=== PATIENT | female | born 1955 | race Asian ===

== ENCOUNTER 2017-06-17 06:46 | Inpatient (IN) | payer OTHER, BC ==
[2017-06-17 08:46] LABS: ADD MAN DIFF? NO
[2017-06-17 08:47] LABS: WHITE BLOOD COUNT 6.3 10^3/ul (4.8-10.8)
[2017-06-17 08:47] LABS: BASOPHILS % 0.3 % (0.0-2.0); EOSINOPHILS # 0.1 10^3/ul (0.0-0.5); EOSINOPHILS % 2.1 % (0.0-7.0); HEMATOCRIT 34.7 % (37.0-47.0); HEMOGLOBIN 11.8 g/dl (12.0-16.0); LYMPHOCYTES # 1.8 10^3/ul (0.8-2.9); LYMPHOCYTES % 28.4 % (15.0-51.0); MEAN CORPUSCULAR HEMOGLOBIN 30.7 pg (29.0-33.0); MEAN CORPUSCULAR VOLUME 90.4 fl (82.0-101.0); MEAN PLATELET VOLUME 10.6 fl (7.4-10.4); MONOCYTE # 0.8 10^3/ul (0.3-0.9); MONOCYTES % 12.6 % (0.0-11.0); NEUTROPHIL # 3.5 10^3/ul (1.6-7.5); NEUTROPHILS % 56.4 % (39.0-77.0); PLATELET COUNT 179 10^3/UL (140-415); RED BLOOD COUNT 3.84 10^6/ul (4.20-5.40); RED CELL DISTRIBUTION WIDTH 12.6 % (11.5-14.5)
[2017-06-17 09:06] LABS: ALANINE AMINOTRANSFERASE 34 IU/L (13-69); ALBUMIN 4.2 g/dl (3.3-4.9); ALBUMIN/GLOBULIN RATIO 1.23; ALKALINE PHOSPHATASE 117 IU/L (42-121); ANION GAP 19 (8-16); ASPARTATE AMINO TRANSFERASE 24 IU/L (15-46); BILIRUBIN,INDIRECT 0.7 mg/dl (0-1.1); BILIRUBIN,TOTAL 0.7 mg/dl (0.2-1.3); BLOOD UREA NITROGEN 26 mg/dl (7-20); CALCIUM 10.5 mg/dl (8.4-10.2); CARBON DIOXIDE 22 mmol/L (21-31); CHLORIDE 108 mmol/L (97-110); CREATININE 1.14 mg/dl (0.44-1.00); GLUCOSE 100 mg/dl (70-220); LIPASE 20 U/L (23-300); POTASSIUM 3.6 mmol/L (3.5-5.1); SODIUM 145 mmol/L (135-144); TOTAL PROTEIN 7.6 g/dl (6.1-8.1)
[2017-06-17 09:52] LABS: INR 0.85; PROTIME 11.7 Sec (11.9-14.9); PT RATIO 0.9
[2017-06-17 09:53] LABS: PARTIAL THROMBOPLASTIN TIME 33.2 Sec (25.0-35.0)
[2017-06-17 11:39] LABS: ADD UMIC YES; UR ASCORBIC ACID NEGATIVE (NEGATIVE); UR BACTERIA FEW /HPF (NONE SEEN); UR BILIRUBIN (Dip) NEGATIVE (NEGATIVE); UR BLOOD (Dip) 1+ mg/dL (NEGATIVE); UR BUDDING YEAST FEW /HPF (NONE SEEN); UR CLARITY SLIGHTLY CLOUDY (CLEAR); UR COLOR YELLOW (YELLOW); UR GLUCOSE (Dip) NEGATIVE (NEGATIVE); UR KETONES (Dip) NEGATIVE (NEGATIVE); UR LEUKOCYTE ESTERASE (Dip) 1+ Leu/ul (NEGATIVE); UR NITRITE (Dip) NEGATIVE (NEGATIVE); UR RBC 1 /HPF (0-5); UR SPECIFIC GRAVITY (Dip) 1.013 (1.003-1.030); UR SQUAMOUS EPITHELIAL CELL FEW /HPF (FEW); UR TOTAL PROTEIN (Dip) 1+ mg/dl (NEGATIVE); UR UROBILINOGEN (Dip) 1+ mg/dL (NEGATIVE); UR WBC 21 /HPF (0-5)
[2017-06-17] MEDS ORDERED: ONDANSETRON 4 MG INJ IV ×2 (13:00→15:30)
[2017-06-17] MEDS ORDERED: ACETAMINOPHEN 325 MG TAB PO (13:00)
[2017-06-17] MEDS: CEFTRIAXONE 1 GM/50 ML (PMX) 50 ML IVPB (13:54)
[2017-06-17] MEDS ORDERED: NACL 0.9% 3 ML SYG IV (15:30)
[2017-06-17] MEDS ORDERED: morphine 2 MG INJ IV (15:30)
[2017-06-17] MEDS: FAMOTIDINE 20 MG INJ IV (16:49)
[2017-06-17] MEDS: SOD CHLORIDE 0.9% 1,000 ML IV (16:50)
[2017-06-17] MEDS ORDERED: GLUCOSE GEL 15 GRAM TUBE BUCCAL (18:00)
[2017-06-17] MEDS ORDERED: GLUCOSE GEL 15 GRAM TUBE PO ×2 (18:00)
[2017-06-17] MEDS ORDERED: DEXTROSE 50% 50 ML SYRINGE IV ×2 (18:00)
[2017-06-17] MEDS ORDERED: GLUCAGON 1 MG INJ IM (18:00)
[2017-06-17] MEDS: INSULIN ASPART [NOVOLOG] 3 ML PEN SC ×2 (18:55→20:44)
[2017-06-17] MEDS: CYCLOSPORINE MICROEMULS 25 MG CAP PO (20:36)
[2017-06-17] MEDS: ATORVASTATIN 40 MG TAB PO (20:36)
[2017-06-17] MEDS: LEVETIRACETAM 250 MG TAB PO (20:37)
[2017-06-17] MEDS ORDERED: FAMOTIDINE 20 MG INJ IV (21:00)
[2017-06-18] MEDS: SOD CHLORIDE 0.9% 1,000 ML IV (01:15)
[2017-06-18] MEDS: ACCU-CHEK XX (01:35)
[2017-06-18 06:11] LABS: ADD MAN DIFF? NO
[2017-06-18 06:24] LABS: BASOPHILS % 0.6 % (0.0-2.0); EOSINOPHILS # 0.1 10^3/ul (0.0-0.5); EOSINOPHILS % 2.4 % (0.0-7.0); HEMATOCRIT 36.8 % (37.0-47.0); HEMOGLOBIN 12.7 g/dl (12.0-16.0); LYMPHOCYTES # 1.4 10^3/ul (0.8-2.9); LYMPHOCYTES % 27.8 % (15.0-51.0); MEAN CORPUSCULAR HEMOGLOBIN 31.2 pg (29.0-33.0); MEAN CORPUSCULAR HGB CONC 34.5 g/dl (32.0-37.0); MEAN CORPUSCULAR VOLUME 90.4 fl (82.0-101.0); MEAN PLATELET VOLUME 11.1 fl (7.4-10.4); MONOCYTE # 0.6 10^3/ul (0.3-0.9); MONOCYTES % 12.9 % (0.0-11.0); NEUTROPHIL # 2.8 10^3/ul (1.6-7.5); NEUTROPHILS % 56.3 % (39.0-77.0); PLATELET COUNT 180 10^3/UL (140-415); RED BLOOD COUNT 4.07 10^6/ul (4.20-5.40); RED CELL DISTRIBUTION WIDTH 12.8 % (11.5-14.5)
[2017-06-18 07:02] LABS: ALANINE AMINOTRANSFERASE 30 IU/L (13-69); ALBUMIN 4.2 g/dl (3.3-4.9); ALBUMIN/GLOBULIN RATIO 1.13; ALKALINE PHOSPHATASE 120 IU/L (42-121); ANION GAP 17 (8-16); ASPARTATE AMINO TRANSFERASE 27 IU/L (15-46); BILIRUBIN,INDIRECT 0.6 mg/dl (0-1.1); BILIRUBIN,TOTAL 0.6 mg/dl (0.2-1.3); BLOOD UREA NITROGEN 24 mg/dl (7-20); CALCIUM 10.3 mg/dl (8.4-10.2); CARBON DIOXIDE 22 mmol/L (21-31); CHLORIDE 107 mmol/L (97-110); CREATININE 1.06 mg/dl (0.44-1.00); GLUCOSE 226 mg/dl (70-220); POTASSIUM 3.6 mmol/L (3.5-5.1); SODIUM 142 mmol/L (135-144); TOTAL PROTEIN 7.9 g/dl (6.1-8.1)
[2017-06-18] MEDS: INSULIN ASPART [NOVOLOG] 3 ML PEN SC ×4 (08:08→21:13)
[2017-06-18] MEDS: FAMOTIDINE 20 MG INJ IV (08:17)
[2017-06-18] MEDS: CYCLOSPORINE MICROEMULS 25 MG CAP PO ×2 (08:17→21:03)
[2017-06-18] MEDS: NIFEdipine (XL) 60 MG TAB PO (08:18)
[2017-06-18] MEDS: ASPIRIN 81 MG TAB PO (08:19)
[2017-06-18] MEDS: MULTIVITAMINS THERAPEUTIC TAB PO (08:19)
[2017-06-18] MEDS: ENOXAPARIN 30 MG/0.3 ML SYG SC (08:20)
[2017-06-18] MEDS: LEVOTHYROXINE 25 MCG TAB PO (08:28)
[2017-06-18] MEDS: LEVETIRACETAM 250 MG TAB PO ×2 (08:30→21:02)
[2017-06-18] MEDS: CEFTRIAXONE 1 GM/50 ML (PMX) 50 ML IVPB (11:53)
[2017-06-18] MEDS: hydrALAzine 20 MG INJ IV (14:10)
[2017-06-18] MEDS: ATORVASTATIN 40 MG TAB PO (21:03)
[2017-06-19] MEDS: ACCU-CHEK XX (02:00)
[2017-06-19] MEDS: hydrALAzine 20 MG INJ IV ×3 (02:29→18:33)
[2017-06-19] MEDS: INSULIN ASPART [NOVOLOG] 3 ML PEN SC ×7 (02:37→20:47)
[2017-06-19 06:19] LABS: ADD MAN DIFF? NO
[2017-06-19 06:46] LABS: WHITE BLOOD COUNT 5.5 10^3/ul (4.8-10.8)
[2017-06-19 06:46] LABS: BASOPHILS % 0.4 % (0.0-2.0); EOSINOPHILS # 0.1 10^3/ul (0.0-0.5); EOSINOPHILS % 2.2 % (0.0-7.0); HEMATOCRIT 34.9 % (37.0-47.0); HEMOGLOBIN 12.2 g/dl (12.0-16.0); LYMPHOCYTES # 1.5 10^3/ul (0.8-2.9); MEAN CORPUSCULAR HEMOGLOBIN 31.6 pg (29.0-33.0); MEAN CORPUSCULAR VOLUME 90.4 fl (82.0-101.0); MONOCYTE # 0.7 10^3/ul (0.3-0.9); MONOCYTES % 12.7 % (0.0-11.0); NEUTROPHIL # 3.2 10^3/ul (1.6-7.5); NEUTROPHILS % 57.3 % (39.0-77.0); PLATELET COUNT 157 10^3/UL (140-415); RED BLOOD COUNT 3.86 10^6/ul (4.20-5.40)
[2017-06-19 06:55] LABS: ANION GAP 17 (8-16); BLOOD UREA NITROGEN 29 mg/dl (7-20); CALCIUM 10.7 mg/dl (8.4-10.2); CARBON DIOXIDE 22 mmol/L (21-31); CHLORIDE 106 mmol/L (97-110); CREATININE 1.25 mg/dl (0.44-1.00); GLUCOSE 292 mg/dl (70-220); POTASSIUM 3.7 mmol/L (3.5-5.1); SODIUM 141 mmol/L (135-144)
[2017-06-19] MEDS: LEVOTHYROXINE 25 MCG TAB PO (08:06)
[2017-06-19] MEDS: LEVETIRACETAM 250 MG TAB PO ×2 (09:00→20:41)
[2017-06-19] MEDS: FAMOTIDINE 20 MG INJ IV (09:00)
[2017-06-19] MEDS: INFLUENZA VIRUS VACCINE 0.5 ML (DISPENSING) IM* (09:04)
[2017-06-19] MEDS: ASPIRIN 81 MG TAB PO (09:13)
[2017-06-19] MEDS: CYCLOSPORINE MICROEMULS 25 MG CAP PO ×2 (09:13→20:41)
[2017-06-19] MEDS: MULTIVITAMINS THERAPEUTIC TAB PO (09:13)
[2017-06-19] MEDS: NIFEdipine (XL) 60 MG TAB PO (09:13)
[2017-06-19] MEDS: ENOXAPARIN 30 MG/0.3 ML SYG SC (09:16)
[2017-06-19 10:35] LABS: HEMOGLOBIN A1C 7.8 % (0-5.9)
[2017-06-19] MEDS: CEFTRIAXONE 1 GM/50 ML (PMX) 50 ML IVPB (10:50)
[2017-06-19 11:56] LABS: ALANINE AMINOTRANSFERASE 38 IU/L (13-69); ALBUMIN 4.2 g/dl (3.3-4.9); ALKALINE PHOSPHATASE 126 IU/L (42-121); ANION GAP 17 (8-16); ASPARTATE AMINO TRANSFERASE 25 IU/L (15-46); BILIRUBIN,INDIRECT 0.4 mg/dl (0-1.1); BILIRUBIN,TOTAL 0.4 mg/dl (0.2-1.3); BLOOD UREA NITROGEN 29 mg/dl (7-20); CALCIUM 10.6 mg/dl (8.4-10.2); CARBON DIOXIDE 23 mmol/L (21-31); CHLORIDE 103 mmol/L (97-110); CREATININE 1.32 mg/dl (0.44-1.00); GLUCOSE 285 mg/dl (70-220); POTASSIUM 3.6 mmol/L (3.5-5.1); SODIUM 139 mmol/L (135-144)
[2017-06-19] MEDS ORDERED: INSULIN ASPART [NOVOLOG] 3 ML PEN SC (12:15)
[2017-06-19] MEDS: SOD CHLORIDE 0.45% 1,000 ML IV (15:10)
[2017-06-19] MEDS: BISACODYL (EC) 5 MG TAB PO (18:32)
[2017-06-19] MEDS ORDERED: INSULIN GLARGINE [LANtus] 3 ML PEN SC (20:00)
[2017-06-19] MEDS: DOCUSATE SODIUM 100 MG CAP PO (20:40)
[2017-06-19] MEDS: ATORVASTATIN 40 MG TAB PO (20:41)
[2017-06-19] MEDS: INSULIN GLARGINE [LANtus] 3 ML PEN SC (20:48)
[2017-06-20] MEDS ORDERED: ACCU-CHEK XX (02:00)
[2017-06-20] MEDS: hydrALAzine 20 MG INJ IV (02:12)
[2017-06-20] MEDS: ACCU-CHEK XX (02:57)
[2017-06-20] MEDS: SOD CHLORIDE 0.45% 1,000 ML IV ×3 (05:16→20:00)
[2017-06-20] MEDS: ACETAMINOPHEN 325 MG TAB PO (05:27)
[2017-06-20 05:44] LABS: ADD MAN DIFF? NO
[2017-06-20 05:47] LABS: BASOPHILS % 0.5 % (0.0-2.0); EOSINOPHILS # 0.1 10^3/ul (0.0-0.5); EOSINOPHILS % 2.1 % (0.0-7.0); HEMATOCRIT 33.9 % (37.0-47.0); HEMOGLOBIN 11.7 g/dl (12.0-16.0); LYMPHOCYTES # 1.6 10^3/ul (0.8-2.9); LYMPHOCYTES % 27.4 % (15.0-51.0); MEAN CORPUSCULAR HEMOGLOBIN 31.1 pg (29.0-33.0); MEAN CORPUSCULAR HGB CONC 34.5 g/dl (32.0-37.0); MEAN CORPUSCULAR VOLUME 90.2 fl (82.0-101.0); MEAN PLATELET VOLUME 10.8 fl (7.4-10.4); MONOCYTE # 0.6 10^3/ul (0.3-0.9); MONOCYTES % 9.7 % (0.0-11.0); NEUTROPHIL # 3.5 10^3/ul (1.6-7.5); NEUTROPHILS % 60.1 % (39.0-77.0); PLATELET COUNT 167 10^3/UL (140-415); RED BLOOD COUNT 3.76 10^6/ul (4.20-5.40); RED CELL DISTRIBUTION WIDTH 12.8 % (11.5-14.5)
[2017-06-20 05:47] LABS: WHITE BLOOD COUNT 5.8 10^3/ul (4.8-10.8)
[2017-06-20] MEDS: INSULIN ASPART [NOVOLOG] 3 ML PEN SC ×6 (08:23→21:49)
[2017-06-20] MEDS: NIFEdipine (XL) 60 MG TAB PO (08:36)
[2017-06-20] MEDS: MULTIVITAMINS THERAPEUTIC TAB PO (08:37)
[2017-06-20] MEDS: LEVOTHYROXINE 25 MCG TAB PO (08:37)
[2017-06-20] MEDS: CYCLOSPORINE MICROEMULS 25 MG CAP PO ×2 (08:37→21:41)
[2017-06-20] MEDS: DOCUSATE SODIUM 100 MG CAP PO ×2 (08:38→21:38)
[2017-06-20] MEDS: ASPIRIN 81 MG TAB PO (08:38)
[2017-06-20] MEDS: FAMOTIDINE 20 MG INJ IV (08:38)
[2017-06-20] MEDS: ENOXAPARIN 30 MG/0.3 ML SYG SC (08:43)
[2017-06-20] MEDS: LEVETIRACETAM 250 MG TAB PO ×2 (08:47→21:38)
[2017-06-20] MEDS: CEFTRIAXONE 1 GM/50 ML (PMX) 50 ML IVPB (11:22)
[2017-06-20] MEDS ORDERED: AMIKACIN IV PER PHARMACY XX (15:00)
[2017-06-20] MEDS ORDERED: AMIKACIN IVPB (16:30)
[2017-06-20] MEDS ORDERED: DEXTROSE 5% IVPB (16:30)
[2017-06-20] MEDS: LACTULOSE 30ML CUP PO (17:34)
[2017-06-20] MEDS: DEXTROSE 5% IVPB (17:55)
[2017-06-20] MEDS: AMIKACIN IVPB (17:55)
[2017-06-20] MEDS: FLUCONAZOLE 100 MG TAB PO (17:55)
[2017-06-20] MEDS ORDERED: INSULIN GLARGINE [LANtus] 3 ML PEN SC (20:00)
[2017-06-20] MEDS: ATORVASTATIN 40 MG TAB PO (21:40)
[2017-06-20] MEDS: INSULIN GLARGINE [LANtus] 3 ML PEN SC (21:50)
[2017-06-21] MEDS: ACCU-CHEK XX (02:00)
[2017-06-21] MEDS: hydrALAzine 20 MG INJ IV (02:36)
[2017-06-21] MEDS ORDERED: [UNRECOGNIZED DRUG - REMARK] XX (05:00)
[2017-06-21 06:16] LABS: ADD MAN DIFF? NO
[2017-06-21 06:21] LABS: BASOPHILS % 0.2 % (0.0-2.0); EOSINOPHILS # 0.1 10^3/ul (0.0-0.5); EOSINOPHILS % 2.1 % (0.0-7.0); HEMATOCRIT 34.8 % (37.0-47.0); HEMOGLOBIN 11.8 g/dl (12.0-16.0); LYMPHOCYTES # 1.4 10^3/ul (0.8-2.9); LYMPHOCYTES % 26.9 % (15.0-51.0); MEAN CORPUSCULAR HEMOGLOBIN 30.6 pg (29.0-33.0); MEAN CORPUSCULAR HGB CONC 33.9 g/dl (32.0-37.0); MEAN CORPUSCULAR VOLUME 90.2 fl (82.0-101.0); MEAN PLATELET VOLUME 10.6 fl (7.4-10.4); MONOCYTE # 0.6 10^3/ul (0.3-0.9); MONOCYTES % 12.4 % (0.0-11.0); PLATELET COUNT 160 10^3/UL (140-415); RED BLOOD COUNT 3.86 10^6/ul (4.20-5.40); RED CELL DISTRIBUTION WIDTH 12.6 % (11.5-14.5)
[2017-06-21 06:21] LABS: WHITE BLOOD COUNT 5.2 10^3/ul (4.8-10.8)
[2017-06-21 07:03] LABS: ANION GAP 16 (8-16); BLOOD UREA NITROGEN 23 mg/dl (7-20); CALCIUM 10.5 mg/dl (8.4-10.2); CARBON DIOXIDE 19 mmol/L (21-31); CHLORIDE 108 mmol/L (97-110); CREATININE 1.08 mg/dl (0.44-1.00); GLUCOSE 260 mg/dl (70-220); POTASSIUM 3.8 mmol/L (3.5-5.1); SODIUM 139 mmol/L (135-144)
[2017-06-21] MEDS: INSULIN ASPART [NOVOLOG] 3 ML PEN SC ×7 (08:20→21:10)
[2017-06-21] MEDS: ENOXAPARIN 30 MG/0.3 ML SYG SC (08:21)
[2017-06-21] MEDS: CYCLOSPORINE MICROEMULS 25 MG CAP PO ×2 (08:22→20:59)
[2017-06-21] MEDS: FAMOTIDINE 20 MG INJ IV (08:22)
[2017-06-21] MEDS: DOCUSATE SODIUM 100 MG CAP PO ×2 (08:23→20:57)
[2017-06-21] MEDS: NIFEdipine (XL) 60 MG TAB PO (08:23)
[2017-06-21] MEDS: LEVETIRACETAM 250 MG TAB PO ×2 (08:23→21:00)
[2017-06-21] MEDS: LEVOTHYROXINE 25 MCG TAB PO (08:24)
[2017-06-21] MEDS: ASPIRIN 81 MG TAB PO (08:24)
[2017-06-21] MEDS: FLUCONAZOLE 100 MG TAB PO (08:24)
[2017-06-21] MEDS: MULTIVITAMINS THERAPEUTIC TAB PO (08:24)
[2017-06-21] MEDS: SOD CHLORIDE 0.45% 1,000 ML IV ×2 (10:00→19:20)
[2017-06-21] MEDS: ATORVASTATIN 40 MG TAB PO (20:59)
[2017-06-21] MEDS: CEFEPIME 1GM/50 ML (PMX) 50 ML IVPB (21:02)
[2017-06-21] MEDS: INSULIN GLARGINE [LANtus] 3 ML PEN SC (21:12)
[2017-06-22] MEDS: SOD CHLORIDE 0.45% 1,000 ML IV ×3 (01:29→22:00)
[2017-06-22] MEDS: ACCU-CHEK XX (02:00)
[2017-06-22] MEDS: ACETAMINOPHEN 325 MG TAB PO (04:31)
[2017-06-22 06:22] LABS: ADD MAN DIFF? NO
[2017-06-22 06:33] LABS: WHITE BLOOD COUNT 5.1 10^3/ul (4.8-10.8)
[2017-06-22 06:33] LABS: BASOPHILS % 0.4 % (0.0-2.0); EOSINOPHILS # 0.1 10^3/ul (0.0-0.5); EOSINOPHILS % 1.9 % (0.0-7.0); HEMATOCRIT 32.2 % (37.0-47.0); HEMOGLOBIN 10.9 g/dl (12.0-16.0); LYMPHOCYTES # 1.4 10^3/ul (0.8-2.9); LYMPHOCYTES % 28.1 % (15.0-51.0); MEAN CORPUSCULAR HEMOGLOBIN 30.9 pg (29.0-33.0); MEAN CORPUSCULAR HGB CONC 33.9 g/dl (32.0-37.0); MEAN CORPUSCULAR VOLUME 91.2 fl (82.0-101.0); MEAN PLATELET VOLUME 10.9 fl (7.4-10.4); MONOCYTE # 0.8 10^3/ul (0.3-0.9); MONOCYTES % 14.6 % (0.0-11.0); NEUTROPHIL # 2.8 10^3/ul (1.6-7.5); PLATELET COUNT 151 10^3/UL (140-415); RED BLOOD COUNT 3.53 10^6/ul (4.20-5.40); RED CELL DISTRIBUTION WIDTH 12.8 % (11.5-14.5)
[2017-06-22 07:00] LABS: ANION GAP 15 (8-16); BLOOD UREA NITROGEN 21 mg/dl (7-20); CALCIUM 10.1 mg/dl (8.4-10.2); CARBON DIOXIDE 20 mmol/L (21-31); CHLORIDE 107 mmol/L (97-110); CREATININE 1.07 mg/dl (0.44-1.00); GLUCOSE 346 mg/dl (70-220); POTASSIUM 4.1 mmol/L (3.5-5.1); SODIUM 138 mmol/L (135-144)
[2017-06-22] MEDS: CYCLOSPORINE MICROEMULS 25 MG CAP PO ×2 (08:08→21:27)
[2017-06-22] MEDS: FAMOTIDINE 20 MG INJ IV (08:08)
[2017-06-22] MEDS: CEFEPIME 1GM/50 ML (PMX) 50 ML IVPB ×2 (08:08→21:19)
[2017-06-22] MEDS: DOCUSATE SODIUM 100 MG CAP PO ×2 (08:10→21:19)
[2017-06-22] MEDS: LEVETIRACETAM 250 MG TAB PO ×2 (08:10→21:20)
[2017-06-22] MEDS: predniSONE 5 MG TAB PO (08:10)
[2017-06-22] MEDS: NIFEdipine (XL) 60 MG TAB PO (08:10)
[2017-06-22] MEDS: FLUCONAZOLE 100 MG TAB PO (08:10)
[2017-06-22] MEDS: ASPIRIN 81 MG TAB PO (08:10)
[2017-06-22] MEDS: MULTIVITAMINS THERAPEUTIC TAB PO (08:10)
[2017-06-22] MEDS: BISACODYL (EC) 5 MG TAB PO (08:10)
[2017-06-22] MEDS: LEVOTHYROXINE 25 MCG TAB PO (08:19)
[2017-06-22] MEDS: INSULIN ASPART [NOVOLOG] 3 ML PEN SC ×7 (08:23→21:39)
[2017-06-22] MEDS: ENOXAPARIN 30 MG/0.3 ML SYG SC (08:24)
[2017-06-22] MEDS: MYCOPHENOLATE 250 MG CAP PO ×2 (10:30→21:00)
[2017-06-22] MEDS: ATORVASTATIN 40 MG TAB PO (21:20)
[2017-06-22] MEDS: INSULIN GLARGINE [LANtus] 3 ML PEN SC (21:37)
[2017-06-23] MEDS: ACCU-CHEK XX (01:57)
[2017-06-23] MEDS: CEFEPIME 1GM/50 ML (PMX) 50 ML IVPB (08:17)
[2017-06-23] MEDS: INSULIN ASPART [NOVOLOG] 3 ML PEN SC ×4 (08:19→12:22)
[2017-06-23] MEDS: ENOXAPARIN 30 MG/0.3 ML SYG SC (08:20)
[2017-06-23] MEDS: FAMOTIDINE 20 MG INJ IV (08:21)
[2017-06-23] MEDS: CYCLOSPORINE MICROEMULS 25 MG CAP PO (08:21)
[2017-06-23] MEDS: ASPIRIN 81 MG TAB PO (08:22)
[2017-06-23] MEDS: DOCUSATE SODIUM 100 MG CAP PO (08:22)
[2017-06-23] MEDS: NIFEdipine (XL) 60 MG TAB PO (08:22)
[2017-06-23] MEDS: LEVOTHYROXINE 25 MCG TAB PO (08:22)
[2017-06-23] MEDS: MULTIVITAMINS THERAPEUTIC TAB PO (08:22)
[2017-06-23] MEDS: FLUCONAZOLE 100 MG TAB PO (08:22)
[2017-06-23] MEDS: predniSONE 5 MG TAB PO (08:25)
[2017-06-23] MEDS: LEVETIRACETAM 250 MG TAB PO (08:27)
[2017-06-23] MEDS: MYCOPHENOLATE 250 MG CAP PO (08:27)
[2017-06-23] MEDS: SOD CHLORIDE 0.45% 1,000 ML IV (12:17)
== END 2017-06-23 16:15 | disposition home or self-care (01) | DRG 690 ==
LOC: E/R 06:46 → MS2 14:21 → MS3 12:38 → MS2 17:00
DX: N39.0 Urinary tract infection, site not specified (principal); Z94.0 Kidney transplant status; I10 Essential (primary) hypertension; E11.9 Type 2 diabetes mellitus without complications; I25.10 Atherosclerotic heart disease of native coronary artery without angina pectoris; E03.9 Hypothyroidism, unspecified; E78.5 Hyperlipidemia, unspecified; Z91.14 Patient's other noncompliance with medication regimen; Z95.5 Presence of coronary angioplasty implant and graft; Z79.4 Long term (current) use of insulin
CPT/HCPCS: 80048; 80053; 80150; 81001; 82962; 83036; 83690; 84443; 85025; 85610; 85730; 87040; 87086; 90686; 96374; 99285-25

== ENCOUNTER 2017-07-14 07:25 | Inpatient (IN) | payer OTHER ==
[2017-07-14] MEDS: HYDROmorphONE 1 MG/ML SYG IV (09:40)
[2017-07-14] MEDS: ONDANSETRON 4 MG INJ IV (09:40)
[2017-07-14] MEDS: SODIUM CHLORIDE 0.9% 1L BAG IV* (09:41)
[2017-07-14] MEDS: ACETAMINOPHEN 500 MG TAB PO ×2 (09:55→12:36)
[2017-07-14 10:07] LABS: ADD MAN DIFF? NO
[2017-07-14 10:14] LABS: BASOPHILS % 0.2 % (0.0-2.0); HEMATOCRIT 34.2 % (37.0-47.0); HEMOGLOBIN 11.5 g/dl (12.0-16.0); LYMPHOCYTES # 0.7 10^3/ul (0.8-2.9); LYMPHOCYTES % 5.3 % (15.0-51.0); MEAN CORPUSCULAR HEMOGLOBIN 30.7 pg (29.0-33.0); MEAN CORPUSCULAR HGB CONC 33.6 g/dl (32.0-37.0); MEAN CORPUSCULAR VOLUME 91.2 fl (82.0-101.0); MEAN PLATELET VOLUME 10.9 fl (7.4-10.4); MONOCYTE # 1.2 10^3/ul (0.3-0.9); MONOCYTES % 9.3 % (0.0-11.0); NEUTROPHILS % 84.7 % (39.0-77.0); PLATELET COUNT 149 10^3/UL (140-415); RED BLOOD COUNT 3.75 10^6/ul (4.20-5.40); RED CELL DISTRIBUTION WIDTH 13.9 % (11.5-14.5)
[2017-07-14 10:32] LABS: PROTIME 14.4 Sec (11.9-14.9); PT RATIO 1.1
[2017-07-14 10:34] LABS: ALANINE AMINOTRANSFERASE 29 IU/L (13-69); ALBUMIN 4.1 g/dl (3.3-4.9); ALKALINE PHOSPHATASE 137 IU/L (42-121); AMYLASE 45 U/L (11-123); ANION GAP 17 (8-16); ASPARTATE AMINO TRANSFERASE 24 IU/L (15-46); BILIRUBIN,INDIRECT 0.6 mg/dl (0-1.1); BILIRUBIN,TOTAL 0.6 mg/dl (0.2-1.3); BLOOD UREA NITROGEN 31 mg/dl (7-20); CALCIUM 10.6 mg/dl (8.4-10.2); CARBON DIOXIDE 20 mmol/L (21-31); CHLORIDE 105 mmol/L (97-110); CREATININE 1.67 mg/dl (0.44-1.00); GLUCOSE 268 mg/dl (70-220); LIPASE 16 U/L (23-300); PARTIAL THROMBOPLASTIN TIME 40.5 Sec (25.0-35.0); POTASSIUM 3.5 mmol/L (3.5-5.1); SODIUM 138 mmol/L (135-144); TOTAL PROTEIN 8.2 g/dl (6.1-8.1)
[2017-07-14 10:42] LABS: LACTIC ACID 1.8 mmol/L (0.5-2.0)
[2017-07-14] MEDS: CEFTRIAXONE 1 GM/50 ML (PMX) 50 ML IVPB (10:45)
[2017-07-14 10:52] LABS: TROPONIN-I 0.019 ng/ml (0.00-0.12)
[2017-07-14] MEDS: IBUPROFEN 800 MG TAB PO (12:39)
[2017-07-14] MEDS: SOD CHLORIDE 0.9% 1,000 ML IV (12:40)
[2017-07-14 13:07] LABS: ADD UMIC YES; UR ASCORBIC ACID NEGATIVE (NEGATIVE); UR BACTERIA FEW /HPF (NONE SEEN); UR BILIRUBIN (Dip) NEGATIVE (NEGATIVE); UR BLOOD (Dip) 1+ mg/dL (NEGATIVE); UR CLARITY SLIGHTLY CLOUDY (CLEAR); UR COLOR YELLOW (YELLOW); UR GLUCOSE (Dip) 1+ mg/dL (NEGATIVE); UR KETONES (Dip) NEGATIVE (NEGATIVE); UR LEUKOCYTE ESTERASE (Dip) NEGATIVE Leu/ul (NEGATIVE); UR MUCUS FEW /HPF (NONE SEEN); UR NITRITE (Dip) NEGATIVE (NEGATIVE); UR RBC 1 /HPF (0-5); UR SPECIFIC GRAVITY (Dip) 1.015 (1.003-1.030); UR TOTAL PROTEIN (Dip) 2+ mg/dl (NEGATIVE); UR UROBILINOGEN (Dip) NEGATIVE (NEGATIVE); UR WBC 14 /HPF (0-5)
[2017-07-14] MEDS ORDERED: ACETAMINOPHEN 500 MG TAB PO (17:00)
[2017-07-14] MEDS ORDERED: ONDANSETRON 4 MG INJ IV (17:00)
[2017-07-14] MEDS ORDERED: GLUCOSE GEL 15 GRAM TUBE BUCCAL (17:30)
[2017-07-14] MEDS ORDERED: GLUCAGON 1 MG INJ IM (17:30)
[2017-07-14] MEDS ORDERED: DEXTROSE 50% 50 ML SYRINGE IV ×2 (17:30)
[2017-07-14] MEDS ORDERED: GLUCOSE GEL 15 GRAM TUBE PO ×2 (17:30)
[2017-07-14] MEDS: predniSONE 5 MG TAB PO (18:41)
[2017-07-14] MEDS: SOD CHLORIDE 0.45% 1,000 ML IV (18:41)
[2017-07-14] MEDS: INSULIN ASPART [NOVOLOG] 3 ML PEN SC ×3 (19:10→22:57)
[2017-07-14] MEDS: hydrALAzine 20 MG INJ IV (19:13)
[2017-07-14] MEDS ORDERED: MYCOPHENOLATE (SR) 180 MG TAB PO (21:00)
[2017-07-14] MEDS: LEVETIRACETAM 250 MG TAB PO ×2 (21:00→22:51)
[2017-07-14] MEDS ORDERED: MYCOPHENOLATE 250 MG CAP PO (21:00)
[2017-07-14] MEDS: CYCLOSPORINE MICROEMULS 25 MG CAP PO (22:51)
[2017-07-14] MEDS: ATORVASTATIN 40 MG TAB PO (22:52)
[2017-07-14] MEDS: CEFEPIME 1GM/50 ML (PMX) 50 ML IVPB (22:52)
[2017-07-14] MEDS: INSULIN GLARGINE [LANtus] 3 ML PEN SC (22:55)
[2017-07-15] MEDS: AMLODIPINE 5 MG TAB PO ×3 (00:32→21:22)
[2017-07-15 04:57] LABS: WHITE BLOOD COUNT 11.6 10^3/ul (4.8-10.8)
[2017-07-15 04:57] LABS: HEMATOCRIT 30.9 % (37.0-47.0); HEMOGLOBIN 10.3 g/dl (12.0-16.0); MEAN CORPUSCULAR HGB CONC 33.3 g/dl (32.0-37.0); MEAN CORPUSCULAR VOLUME 93.1 fl (82.0-101.0); MEAN PLATELET VOLUME 10.9 fl (7.4-10.4); PLATELET COUNT 120 10^3/UL (140-415); RED BLOOD COUNT 3.32 10^6/ul (4.20-5.40); RED CELL DISTRIBUTION WIDTH 13.8 % (11.5-14.5)
[2017-07-15 05:08] LABS: POSITIVE DIFF @See below
[2017-07-15 05:10] LABS: ADD MAN DIFF? YES
[2017-07-15 05:47] LABS: CREATINE KINASE 41 IU/L (23-200)
[2017-07-15 05:47] LABS: URIC ACID 9.3 mg/dl (3.1-7.9)
[2017-07-15 05:58] LABS: ANION GAP 13 (8-16); BLOOD UREA NITROGEN 27 mg/dl (7-20); CALCIUM 10.2 mg/dl (8.4-10.2); CARBON DIOXIDE 21 mmol/L (21-31); CHLORIDE 108 mmol/L (97-110); GLUCOSE 261 mg/dl (70-220); POTASSIUM 3.6 mmol/L (3.5-5.1); SODIUM 138 mmol/L (135-144)
[2017-07-15] MEDS: SOD CHLORIDE 0.45% 1,000 ML IV ×2 (06:07→09:32)
[2017-07-15] MEDS: LEVOTHYROXINE 25 MCG TAB PO (06:08)
[2017-07-15 08:05] LABS: SODIUM,URINE RANDOM 80 mmol/L (30-90)
[2017-07-15] MEDS: INSULIN ASPART [NOVOLOG] 3 ML PEN SC ×7 (08:23→21:44)
[2017-07-15] MEDS: ENOXAPARIN 30 MG/0.3 ML SYG SC (08:25)
[2017-07-15] MEDS: MULTIVITAMINS THERAPEUTIC TAB PO (08:26)
[2017-07-15] MEDS: LEVETIRACETAM 250 MG TAB PO ×3 (08:26→21:24)
[2017-07-15] MEDS: CYCLOSPORINE MICROEMULS 25 MG CAP PO ×2 (08:26→21:23)
[2017-07-15] MEDS: FERROUS SULFATE (EC) 325 MG TAB PO (08:27)
[2017-07-15] MEDS: predniSONE 5 MG TAB PO (08:27)
[2017-07-15] MEDS: CHLORTHALIDONE 25 MG TAB PO (08:27)
[2017-07-15] MEDS: ASPIRIN (EC) 81 MG TAB PO (08:27)
[2017-07-15 09:27] LABS: BAND NEUTROPHILS % (M) 35 % (0-4); EOSINOPHILS % (M) 1 % (0-7); LYMPHOCYTES #M 0.8 10^3/ul (0.8-2.9); LYMPHOCYTES % (M) 7 % (15-51); MONOCYTE #M 0.4 10^3/ul (0.3-0.9); MONOCYTES % (M) 4 % (0-11); PLATELET ESTIMATE DECREASED; REACTIVE LYMPHOCYTES #M 0.4 10^3/ul (0.0-0.0); REACTIVE LYMPHOCYTES% (M) 4 % (0-0); SEG NEUT #M 6.1 10^3/ul (1.6-7.5); SEGMENTED NEUTROPHILS (M) % 49 % (39-77); SMUDGE%M 3 % (0-0)
[2017-07-15] MEDS ORDERED: CEFTRIAXONE 1 GM/50 ML (PMX) 50 ML IVPB (11:00)
[2017-07-15] MEDS: LINEZOLID 600 MG/D5W (PMX) 300 ML IVPB (18:33)
[2017-07-15] MEDS: CEFEPIME 1GM/50 ML (PMX) 50 ML IVPB (21:21)
[2017-07-15] MEDS: ATORVASTATIN 40 MG TAB PO (21:22)
[2017-07-15] MEDS: INSULIN GLARGINE [LANtus] 3 ML PEN SC (21:25)
[2017-07-15] MEDS: GUAIFENESIN 20 MG/ML 5ML CUP PO (22:10)
[2017-07-16] MEDS: SOD CHLORIDE 0.45% 1,000 ML IV ×2 (00:43→22:20)
[2017-07-16] MEDS: LEVOTHYROXINE 25 MCG TAB PO (06:11)
[2017-07-16 06:42] LABS: ANION GAP 16 (8-16); BLOOD UREA NITROGEN 23 mg/dl (7-20); CALCIUM 10.3 mg/dl (8.4-10.2); CARBON DIOXIDE 22 mmol/L (21-31); CHLORIDE 104 mmol/L (97-110); CREATININE 1.29 mg/dl (0.44-1.00); GLUCOSE 230 mg/dl (70-220); POTASSIUM 3.6 mmol/L (3.5-5.1); SODIUM 138 mmol/L (135-144)
[2017-07-16] MEDS: AMLODIPINE 5 MG TAB PO (08:09)
[2017-07-16] MEDS: CYCLOSPORINE MICROEMULS 25 MG CAP PO ×2 (08:09→20:08)
[2017-07-16] MEDS: ASPIRIN (EC) 81 MG TAB PO (08:09)
[2017-07-16] MEDS: LEVETIRACETAM 250 MG TAB PO ×2 (08:10→20:21)
[2017-07-16] MEDS: FERROUS SULFATE (EC) 325 MG TAB PO (08:11)
[2017-07-16] MEDS: CHLORTHALIDONE 25 MG TAB PO (08:11)
[2017-07-16] MEDS: predniSONE 5 MG TAB PO (08:12)
[2017-07-16] MEDS: INSULIN ASPART [NOVOLOG] 3 ML PEN SC ×7 (08:20→21:37)
[2017-07-16] MEDS: ENOXAPARIN 30 MG/0.3 ML SYG SC (08:21)
[2017-07-16] MEDS: MULTIVITAMINS THERAPEUTIC TAB PO (08:52)
[2017-07-16] MEDS: LINEZOLID 600 MG/D5W (PMX) 300 ML IVPB ×2 (08:52→20:12)
[2017-07-16] MEDS: hydrALAzine 20 MG INJ IV ×3 (13:17→21:25)
[2017-07-16] MEDS ORDERED: AMLODIPINE 10 MG TAB (19:43)
[2017-07-16] MEDS: ATORVASTATIN 40 MG TAB PO (20:08)
[2017-07-16] MEDS: AMLODIPINE 10 MG TAB PO (20:09)
[2017-07-16] MEDS: INSULIN GLARGINE [LANtus] 3 ML PEN SC (20:12)
[2017-07-17] MEDS: hydrALAzine 20 MG INJ IV ×2 (01:26→20:06)
[2017-07-17] MEDS: NIFEdipine 10 MG CAP PO ×2 (03:55→15:01)
[2017-07-17 06:44] LABS: ADD MAN DIFF? NO
[2017-07-17] MEDS: AMOXICILLIN 500 MG CAP PO ×3 (06:48→22:03)
[2017-07-17] MEDS: LEVOTHYROXINE 25 MCG TAB PO (06:48)
[2017-07-17 06:56] LABS: BASOPHILS % 0.3 % (0.0-2.0); MEAN CORPUSCULAR HEMOGLOBIN 31.1 pg (29.0-33.0); PLATELET COUNT 158 10^3/UL (140-415)
[2017-07-17 07:04] LABS: WHITE BLOOD COUNT 6.7 10^3/ul (4.8-10.8)
[2017-07-17 07:04] LABS: EOSINOPHILS # 0.1 10^3/ul (0.0-0.5); EOSINOPHILS % 1.6 % (0.0-7.0); HEMATOCRIT 30.1 % (37.0-47.0); HEMOGLOBIN 10.3 g/dl (12.0-16.0); LYMPHOCYTES # 1.5 10^3/ul (0.8-2.9); LYMPHOCYTES % 22.6 % (15.0-51.0); MEAN CORPUSCULAR HGB CONC 34.2 g/dl (32.0-37.0); MEAN CORPUSCULAR VOLUME 90.9 fl (82.0-101.0); MEAN PLATELET VOLUME 10.6 fl (7.4-10.4); MONOCYTE # 0.7 10^3/ul (0.3-0.9); MONOCYTES % 9.6 % (0.0-11.0); NEUTROPHIL # 4.4 10^3/ul (1.6-7.5); NEUTROPHILS % 65.5 % (39.0-77.0); RED BLOOD COUNT 3.31 10^6/ul (4.20-5.40)
[2017-07-17 07:21] LABS: ANION GAP 14 (8-16); BLOOD UREA NITROGEN 30 mg/dl (7-20); CALCIUM 10.4 mg/dl (8.4-10.2); CARBON DIOXIDE 23 mmol/L (21-31); CHLORIDE 102 mmol/L (97-110); CREATININE 1.34 mg/dl (0.44-1.00); GLUCOSE 274 mg/dl (70-220); POTASSIUM 3.9 mmol/L (3.5-5.1); SODIUM 135 mmol/L (135-144)
[2017-07-17] MEDS: INSULIN ASPART [NOVOLOG] 3 ML PEN SC ×7 (08:17→20:22)
[2017-07-17] MEDS: ENOXAPARIN 30 MG/0.3 ML SYG SC (08:18)
[2017-07-17] MEDS: ASPIRIN (EC) 81 MG TAB PO (08:19)
[2017-07-17] MEDS: MULTIVITAMINS THERAPEUTIC TAB PO (08:19)
[2017-07-17] MEDS: CYCLOSPORINE MICROEMULS 25 MG CAP PO ×2 (08:19→20:21)
[2017-07-17] MEDS: CHLORTHALIDONE 25 MG TAB PO (08:19)
[2017-07-17] MEDS: AMLODIPINE 10 MG TAB PO ×2 (08:19→21:12)
[2017-07-17] MEDS: FERROUS SULFATE (EC) 325 MG TAB PO (08:19)
[2017-07-17] MEDS: predniSONE 5 MG TAB PO (08:19)
[2017-07-17] MEDS: LEVETIRACETAM 250 MG TAB PO ×2 (08:26→20:21)
[2017-07-17] MEDS: LINEZOLID 600 MG/D5W (PMX) 300 ML IVPB (08:27)
[2017-07-17] MEDS ORDERED: NIFEdipine (XL) 60 MG TAB PO ×3 (09:00→18:20)
[2017-07-17] MEDS: SOD CHLORIDE 0.45% 1,000 ML IV (17:23)
[2017-07-17] MEDS: ATORVASTATIN 40 MG TAB PO (20:20)
[2017-07-17] MEDS: INSULIN GLARGINE [LANtus] 3 ML PEN SC (20:22)
[2017-07-18] MEDS: SOD CHLORIDE 0.45% 1,000 ML IV ×2 (01:00→06:30)
[2017-07-18 05:17] LABS: ADD MAN DIFF? NO
[2017-07-18 05:34] LABS: BASOPHILS % 0.4 % (0.0-2.0); EOSINOPHILS # 0.1 10^3/ul (0.0-0.5); HEMATOCRIT 31.7 % (37.0-47.0); LYMPHOCYTES # 1.4 10^3/ul (0.8-2.9); LYMPHOCYTES % 28.4 % (15.0-51.0); MEAN CORPUSCULAR HEMOGLOBIN 30.6 pg (29.0-33.0); MEAN CORPUSCULAR HGB CONC 34.7 g/dl (32.0-37.0); MEAN CORPUSCULAR VOLUME 88.3 fl (82.0-101.0); MEAN PLATELET VOLUME 10.5 fl (7.4-10.4); MONOCYTE # 0.7 10^3/ul (0.3-0.9); MONOCYTES % 13.7 % (0.0-11.0); NEUTROPHIL # 2.8 10^3/ul (1.6-7.5); NEUTROPHILS % 54.9 % (39.0-77.0); PLATELET COUNT 188 10^3/UL (140-415); RED BLOOD COUNT 3.59 10^6/ul (4.20-5.40); RED CELL DISTRIBUTION WIDTH 12.7 % (11.5-14.5)
[2017-07-18 05:45] LABS: ANION GAP 15 (8-16); BLOOD UREA NITROGEN 33 mg/dl (7-20); CALCIUM 10.8 mg/dl (8.4-10.2); CARBON DIOXIDE 24 mmol/L (21-31); CHLORIDE 104 mmol/L (97-110); CREATININE 1.49 mg/dl (0.44-1.00); GLUCOSE 214 mg/dl (70-220); POTASSIUM 4.1 mmol/L (3.5-5.1); SODIUM 139 mmol/L (135-144)
[2017-07-18] MEDS: AMOXICILLIN 500 MG CAP PO ×3 (06:30→22:28)
[2017-07-18] MEDS: LEVOTHYROXINE 25 MCG TAB PO (06:30)
[2017-07-18] MEDS: INSULIN ASPART [NOVOLOG] 3 ML PEN SC ×7 (08:05→21:08)
[2017-07-18] MEDS: ENOXAPARIN 30 MG/0.3 ML SYG SC (08:07)
[2017-07-18] MEDS: CYCLOSPORINE MICROEMULS 25 MG CAP PO ×2 (08:08→20:55)
[2017-07-18] MEDS: MULTIVITAMINS THERAPEUTIC TAB PO (08:08)
[2017-07-18] MEDS: AMLODIPINE 10 MG TAB PO (08:08)
[2017-07-18] MEDS: ASPIRIN (EC) 81 MG TAB PO (08:08)
[2017-07-18] MEDS: CHLORTHALIDONE 25 MG TAB PO (08:08)
[2017-07-18] MEDS: predniSONE 5 MG TAB PO (08:09)
[2017-07-18] MEDS: FERROUS SULFATE (EC) 325 MG TAB PO (08:09)
[2017-07-18] MEDS: LEVETIRACETAM 250 MG TAB PO ×2 (08:17→21:00)
[2017-07-18] MEDS: NIFEdipine (XL) 60 MG TAB PO (16:13)
[2017-07-18] MEDS: ATORVASTATIN 40 MG TAB PO (20:55)
[2017-07-18] MEDS: INSULIN GLARGINE [LANtus] 3 ML PEN SC (21:06)
[2017-07-19] MEDS: SOD CHLORIDE 0.45% 1,000 ML IV (01:08)
[2017-07-19] MEDS: LEVOTHYROXINE 25 MCG TAB PO (05:36)
[2017-07-19] MEDS: AMOXICILLIN 500 MG CAP PO ×2 (05:36→14:44)
[2017-07-19 07:44] LABS: ADD MAN DIFF? NO
[2017-07-19 07:48] LABS: WHITE BLOOD COUNT 5.1 10^3/ul (4.8-10.8)
[2017-07-19 07:48] LABS: BASOPHILS % 0.4 % (0.0-2.0); EOSINOPHILS # 0.1 10^3/ul (0.0-0.5); EOSINOPHILS % 2.2 % (0.0-7.0); HEMATOCRIT 33.6 % (37.0-47.0); HEMOGLOBIN 11.2 g/dl (12.0-16.0); LYMPHOCYTES # 1.7 10^3/ul (0.8-2.9); LYMPHOCYTES % 32.9 % (15.0-51.0); MEAN CORPUSCULAR HEMOGLOBIN 30.4 pg (29.0-33.0); MEAN CORPUSCULAR HGB CONC 33.3 g/dl (32.0-37.0); MEAN CORPUSCULAR VOLUME 91.3 fl (82.0-101.0); MEAN PLATELET VOLUME 10.4 fl (7.4-10.4); MONOCYTE # 0.6 10^3/ul (0.3-0.9); MONOCYTES % 12.5 % (0.0-11.0); NEUTROPHIL # 2.6 10^3/ul (1.6-7.5); NEUTROPHILS % 51.4 % (39.0-77.0); PLATELET COUNT 212 10^3/UL (140-415); RED BLOOD COUNT 3.68 10^6/ul (4.20-5.40); RED CELL DISTRIBUTION WIDTH 12.8 % (11.5-14.5)
[2017-07-19 08:11] LABS: ANION GAP 13 (8-16); BLOOD UREA NITROGEN 35 mg/dl (7-20); CARBON DIOXIDE 22 mmol/L (21-31); CHLORIDE 104 mmol/L (97-110); CREATININE 1.31 mg/dl (0.44-1.00); GLUCOSE 209 mg/dl (70-220); POTASSIUM 3.9 mmol/L (3.5-5.1); SODIUM 135 mmol/L (135-144)
[2017-07-19] MEDS: INSULIN ASPART [NOVOLOG] 3 ML PEN SC ×6 (08:18→17:47)
[2017-07-19] MEDS: FERROUS SULFATE (EC) 325 MG TAB PO (08:20)
[2017-07-19] MEDS: ENOXAPARIN 30 MG/0.3 ML SYG SC (08:20)
[2017-07-19] MEDS: NIFEdipine (XL) 60 MG TAB PO (08:20)
[2017-07-19] MEDS: LEVETIRACETAM 250 MG TAB PO (08:21)
[2017-07-19] MEDS: predniSONE 5 MG TAB PO (08:22)
[2017-07-19] MEDS: ASPIRIN (EC) 81 MG TAB PO (08:22)
[2017-07-19] MEDS: CYCLOSPORINE MICROEMULS 25 MG CAP PO (08:22)
[2017-07-19] MEDS: MULTIVITAMINS THERAPEUTIC TAB PO (08:22)
[2017-07-19] MEDS: CHLORTHALIDONE 25 MG TAB PO (08:27)
[2017-07-19] MEDS: BISACODYL 10 MG SUPP PR (09:25)
== END 2017-07-19 18:47 | disposition home or self-care (01) | DRG 872 ==
LOC: PP2 15:39 → FTE 07:25 → PP2 13:41
DX: A41.9 Sepsis, unspecified organism (principal); N17.9 Acute kidney failure, unspecified; E11.22 Type 2 diabetes mellitus with diabetic chronic kidney disease; E11.65 Type 2 diabetes mellitus with hyperglycemia; Z94.0 Kidney transplant status; N39.0 Urinary tract infection, site not specified; I25.10 Atherosclerotic heart disease of native coronary artery without angina pectoris; E03.9 Hypothyroidism, unspecified; I12.9 Hypertensive chronic kidney disease with stage 1 through stage 4 chronic kidney disease, or unspecified chronic kidney disease; N18.9 Chronic kidney disease, unspecified; I16.0 Hypertensive urgency; B95.2 Enterococcus as the cause of diseases classified elsewhere; E78.00 Pure hypercholesterolemia, unspecified; J06.9 Acute upper respiratory infection, unspecified; Z79.02 Long term (current) use of antithrombotics/antiplatelets; Z79.4 Long term (current) use of insulin; Z95.5 Presence of coronary angioplasty implant and graft; Z79.82 Long term (current) use of aspirin
CPT/HCPCS: 71045; 76775; 80048; 80053; 81001; 81003; 82150; 82550; 82962; 83605; 83690; 84300; 84484; 84560; 85025; 85610; 85730; 87040; 87081; 87086; 87400; 89190; 93005; 96374; 96375; 99285-25